=== PATIENT | male | born 1955 | race Caucasian/White ===

== ENCOUNTER 2021-05-13 11:48 | Emergency (ER) | payer MEDICARE, OTHER ==
[~2021-05-13] VITALS: Ht 177.8 cm; Wt 102.3 kg
[2021-05-13 11:54] VITALS: BP 161/85
[2021-05-13] MEDS ORDERED: KETOROLAC 30 MG/1 ML ONE (13:16)
[2021-05-13] MEDS ORDERED: METHOCARBAMOL 750 MG TABLET ONE (13:16)
[2021-05-13] MEDS ORDERED: METHOCARBAMOL 750 MG TABLET PO ONE (14:00)
[2021-05-13] MEDS ORDERED: KETOROLAC 30 MG/1 ML IM ONE (14:00)
--- NOTE | 2021-05-13 14:26 | NUR ---
Patient given discharge instructions and they have confirmed that they understand the instructions. Patient ambulatory with steady gait.
== END 2021-05-13 14:27 | disposition home or self-care (01) ==
LOC: ED 13:41
DX: M54.41 Lumbago with sciatica, right side (principal); E11.9 Type 2 diabetes mellitus without complications
CPT/HCPCS: 72110; 96372; 99283; J1885